=== PATIENT | male | born 1945 | race African-American/Black ===

== ENCOUNTER 2016-11-07 08:08 | Emergency (ER) | payer BC, OTHER ==
[~2016-11-07] VITALS: Ht 180.3 cm; Wt 81.7 kg
[2016-11-07 12:06] VITALS: BP 0/0
== END 2016-11-07 08:20 ==
LOC: ER 08:08
DX: I46.9 Cardiac arrest, cause unspecified (principal); J44.9 Chronic obstructive pulmonary disease, unspecified; Z86.79 Personal history of other diseases of the circulatory system